=== PATIENT | male | born 1935 | race Caucasian/White ===

== ENCOUNTER 2019-06-24 11:26 | Inpatient (IN) | payer OTHER ==
[~2019-06-24] VITALS: Ht 172.7 cm; Wt 90.7 kg
[2019-06-24 11:30] VITALS: BP_SYST 157
[2019-06-24 14:54] LABS: BASOPHILS # (AUTO) 0.1 K/uL (0.0-0.2); BASOPHILS % (AUTO) 0.7 % (0.0-2.0); EOSINOPHILS # (AUTO) 0.7 K/uL (0.0-0.4); EOSINOPHILS % (AUTO) 5.2 % (0.0-4.0); HEMATOCRIT 40.2 % (36-54); HEMOGLOBIN 13.4 g/dL (14.0-18.0); LYMPHOCYTES # (AUTO) 2.1 K/uL (1.0-5.5); LYMPHOCYTES % (AUTO) 16.8 % (20.5-51.5); MEAN CORPUSCULAR HEMOGLOBIN 28 pg (27-31); MEAN CORPUSCULAR HGB CONC 33 % (32-36); MEAN CORPUSCULAR VOLUME 85 fL (79.0-98.0); MONOCYTES # (AUTO) 0.9 K/uL (0.0-1.0); MONOCYTES % (AUTO) 7.1 % (1.7-9.3); NEUTROPHILS # (AUTO) 8.9 K/uL (1.8-7.7); NEUTROPHILS % (AUTO) 70.2 % (40.0-70.0); PLATELET COUNT (AUTO) 268 K/uL (130-430); RED CELL DISTRIBUTION WIDTH 13.6 % (9.0-15.0); WHITE BLOOD COUNT (AUTO) 12.6 K/uL (4.8-10.8)
[2019-06-24 15:14] LABS: BILIRUBIN,URINE NEGATIVE (NEGATIVE); BLOOD, URINE NEGATIVE (NEGATIVE); CLARITY/URINE CLEAR (CLEAR); COLOR,URINE YELLOW (YELLOW); GLUCOSE,URINE NEGATIVE (NEGATIVE); KETONES,URINE NEGATIVE (NEGATIVE); LEUKOCYTE ESTERASE ,URINE NEGATIVE (NEGATIVE); NITRITE, URINE NEGATIVE (NEGATIVE); PROTEIN URINE 1+ (NEGATIVE); UROBILINOGEN,URINE 0.2 (0.2-1.0)
[2019-06-24 15:25] LABS: BACTERIA,URINE FEW /HPF (None Seen); FINE GRANULAR CASTS,URINE 0-10 /LPF (None Seen); MUCUS,URINE None Seen /LPF (None Seen); RBC,URINE 0-3 /HPF (0-3); WBC,URINE 0-3 /HPF (0-3)
[2019-06-24] MEDS ORDERED: PIPERACILLIN/TAZO 3.375 GM in NS 50 ML IV ONE (15:30)
[2019-06-24] MEDS ORDERED: PIPERACILLIN/TAZOBACTAM 3.375 GM/VIAL (ZOSYN) IV ONE (15:46)
[2019-06-24] MEDS ORDERED: IPRATROPIUM/ALBUTEROL SULFATE 3 ML AMPUL.NEB (DUONEB) INH ONE (17:15)
[2019-06-24] MEDS ORDERED: HYDROcodone/ACETAMIN 5-325 MG TAB (NORCO/ VICODIN) PO ONE (17:45)
[2019-06-24] MEDS ORDERED: FOLI-43 PO (18:05)
[2019-06-24] MEDS ORDERED: [UNRECOGNIZED DRUG - CODE] PO (18:05)
[2019-06-24] MEDS ORDERED: LIP40 PO (18:05)
[2019-06-24] MEDS ORDERED: ALLO100T91 PO (18:05)
[2019-06-24] MEDS ORDERED: GABA-531 PO (18:05)
[2019-06-24] MEDS ORDERED: APIX5TAB4 PO (18:05)
[2019-06-24] MEDS ORDERED: NOR10 PO (18:05)
[2019-06-24] MEDS ORDERED: INSU100I26 SQ (18:06)
[2019-06-24 18:55] VITALS: BP_SYST 157
[2019-06-24 19:00] VITALS: BP_SYST 144
[2019-06-24 20:00] VITALS: BP_SYST 144
[2019-06-24] MEDS: ATORVASTATIN 20 MG TABLET PO SCH (21:36)
[2019-06-24] MEDS: GABAPENTIN 300 MG CAPSULE PO SCH (21:36)
[2019-06-24] MEDS: NORMAL SALINE 5 ML DISP.SYRIN IVF SCH (21:37)
[2019-06-24] MEDS: cefTRIAXone 1 GM IVPB PREMIX 50 ML IV SCH (22:30)
[2019-06-24] MEDS: AZITHROMYCIN 500 MG in NS 250 ML IV SCH (22:31)
[2019-06-24] MEDS ORDERED: cefTRIAXone 1 GM IVPB PREMIX 50 ML IV ONE (22:35)
[2019-06-24] MEDS ORDERED: AZITHROMYCIN 500 MG/VIAL (ZITHROMAX) IV ONE (22:35)
[2019-06-25 00:09] VITALS: BP_SYST 148
[2019-06-25] MEDS: NORMAL SALINE 5 ML DISP.SYRIN IVF SCH ×3 (05:03→21:37)
[2019-06-25 08:01] VITALS: BP_SYST 148
[2019-06-25] MEDS: amLODIPine BESYLATE 10 MG TABLET PO SCH (08:08)
[2019-06-25] MEDS: FOLIC ACID 1 MG TABLET PO SCH (08:08)
[2019-06-25] MEDS: ALLOPURINOL 100 MG TABLET (ZYLOPRIM) PO SCH (08:08)
[2019-06-25] MEDS: GABAPENTIN 300 MG CAPSULE PO SCH ×3 (08:08→20:09)
[2019-06-25 09:32] LABS: BASOPHILS # (AUTO) 0.1 K/uL (0.0-0.2); BASOPHILS % (AUTO) 0.9 % (0.0-2.0); EOSINOPHILS # (AUTO) 0.8 K/uL (0.0-0.4); HEMATOCRIT 40.5 % (36-54); HEMOGLOBIN 13.4 g/dL (14.0-18.0); LYMPHOCYTES # (AUTO) 1.8 K/uL (1.0-5.5); LYMPHOCYTES % (AUTO) 14.1 % (20.5-51.5); MEAN CORPUSCULAR HEMOGLOBIN 28 pg (27-31); MEAN CORPUSCULAR HGB CONC 33 % (32-36); MEAN CORPUSCULAR VOLUME 85 fL (79.0-98.0); MONOCYTES # (AUTO) 0.7 K/uL (0.0-1.0); MONOCYTES % (AUTO) 5.8 % (1.7-9.3); NEUTROPHILS # (AUTO) 9.4 K/uL (1.8-7.7); NEUTROPHILS % (AUTO) 73.2 % (40.0-70.0); PLATELET COUNT (AUTO) 305 K/uL (130-430); RED BLOOD CELL COUNT(AUTO) 4.74 MIL/uL (4.2-6.2); RED CELL DISTRIBUTION WIDTH 13.6 % (9.0-15.0); WHITE BLOOD COUNT (AUTO) 12.8 K/uL (4.8-10.8)
[2019-06-25 09:51] LABS: ALANINE AMINOTRANSFERASE 9 U/L (12-78); ALBUMIN 3.2 g/dL (3.4-4.8); ANION GAP 9 (5-15); ASPARTATE AMINOTRANSFERASE 14 U/L (10-37); CALCIUM 9.4 mg/dL (8.4-11.0); CHLORIDE 104 mmol/L (98-107); CREATININE 1.51 mg/dL (0.55-1.30); GLUCOSE 157 mg/dL (70-99); POTASSIUM 4.3 mmol/L (3.5-5.1); SODIUM SERUM 142 mmol/L (136-145); TOTAL BILIRUBIN 1.1 mg/dL (0.0-1.0); UREA NITROGEN, BLOOD 26 mg/dL (8-21)
[2019-06-25 11:17] VITALS: BP_SYST 128
[2019-06-25 15:23] VITALS: BP_SYST 133
[2019-06-25] MEDS: cefTRIAXone 1 GM IVPB PREMIX 50 ML IV SCH (18:35)
[2019-06-25 20:00] VITALS: BP_SYST 168
[2019-06-25] MEDS: ATORVASTATIN 20 MG TABLET PO SCH (20:10)
[2019-06-25] MEDS: AZITHROMYCIN 500 MG in NS 250 ML IV SCH (20:11)
[2019-06-25] MEDS: HYDROcodone/ACETAMIN 10-325 MG TAB PO PRN (21:37)
[2019-06-26 00:45] VITALS: BP_SYST 114
[2019-06-26] MEDS: NORMAL SALINE 5 ML DISP.SYRIN IVF SCH ×3 (06:14→21:05)
[2019-06-26 08:05] VITALS: BP_SYST 135
[2019-06-26] MEDS: FOLIC ACID 1 MG TABLET PO SCH (08:24)
[2019-06-26] MEDS: amLODIPine BESYLATE 10 MG TABLET PO SCH (08:24)
[2019-06-26] MEDS: GABAPENTIN 300 MG CAPSULE PO SCH ×3 (08:24→20:55)
[2019-06-26] MEDS: MUPIROCIN 2% TOPICAL OINTMENT 22 GM NS SCH ×2 (08:24→20:57)
[2019-06-26] MEDS: ALLOPURINOL 100 MG TABLET (ZYLOPRIM) PO SCH (08:24)
[2019-06-26] MEDS: HYDROcodone/ACETAMIN 10-325 MG TAB PO PRN (08:27)
[2019-06-26 08:30] LABS: BASOPHILS # (AUTO) 0.1 K/uL (0.0-0.2); BASOPHILS % (AUTO) 1.1 % (0.0-2.0); EOSINOPHILS # (AUTO) 0.9 K/uL (0.0-0.4); EOSINOPHILS % (AUTO) 7.7 % (0.0-4.0); HEMATOCRIT 35.6 % (36-54); HEMOGLOBIN 11.8 g/dL (14.0-18.0); LYMPHOCYTES % (AUTO) 17.3 % (20.5-51.5); MEAN CORPUSCULAR HEMOGLOBIN 28 pg (27-31); MEAN CORPUSCULAR HGB CONC 33 % (32-36); MEAN CORPUSCULAR VOLUME 86 fL (79.0-98.0); MONOCYTES % (AUTO) 8.8 % (1.7-9.3); NEUTROPHILS # (AUTO) 7.4 K/uL (1.8-7.7); NEUTROPHILS % (AUTO) 65.1 % (40.0-70.0); PLATELET COUNT (AUTO) 281 K/uL (130-430); RED BLOOD CELL COUNT(AUTO) 4.16 MIL/uL (4.2-6.2); RED CELL DISTRIBUTION WIDTH 13.4 % (9.0-15.0); WHITE BLOOD COUNT (AUTO) 11.3 K/uL (4.8-10.8)
[2019-06-26 08:54] LABS: ANION GAP 8 (5-15); CALCIUM 8.9 mg/dL (8.4-11.0); CHLORIDE 104 mmol/L (98-107); CREATININE 1.58 mg/dL (0.55-1.30); GLUCOSE 160 mg/dL (70-99); POTASSIUM 4.3 mmol/L (3.5-5.1); SODIUM SERUM 140 mmol/L (136-145); UREA NITROGEN, BLOOD 26 mg/dL (8-21)
[2019-06-26] MEDS: INSULIN REGULAR, HUMAN 100 UNITS/ML, 10 ML VIAL (humuLIN R) SUBCUT PRN (11:47)
[2019-06-26 12:57] VITALS: BP_SYST 146
[2019-06-26 18:03] VITALS: BP_SYST 133
[2019-06-26] MEDS: cefTRIAXone 1 GM IVPB PREMIX 50 ML IV SCH (19:50)
[2019-06-26 20:00] VITALS: BP_SYST 149
[2019-06-26] MEDS: AZITHROMYCIN 500 MG in NS 250 ML IV SCH (20:55)
[2019-06-26] MEDS: ATORVASTATIN 20 MG TABLET PO SCH (20:55)
[2019-06-27] MEDS: INSULIN REGULAR, HUMAN 100 UNITS/ML, 10 ML VIAL (humuLIN R) SUBCUT PRN ×3 (00:16→17:29)
[2019-06-27 00:20] VITALS: BP_SYST 122
[2019-06-27] MEDS: NORMAL SALINE 5 ML DISP.SYRIN IVF SCH ×3 (05:52→21:28)
[2019-06-27 08:30] VITALS: BP_SYST 174
[2019-06-27] MEDS: GABAPENTIN 300 MG CAPSULE PO SCH ×3 (09:13→21:27)
[2019-06-27] MEDS: ALLOPURINOL 100 MG TABLET (ZYLOPRIM) PO SCH (09:13)
[2019-06-27] MEDS: amLODIPine BESYLATE 10 MG TABLET PO SCH (09:14)
[2019-06-27] MEDS: FOLIC ACID 1 MG TABLET PO SCH (09:14)
[2019-06-27] MEDS: HYDROcodone/ACETAMIN 10-325 MG TAB PO PRN ×2 (09:15→21:28)
[2019-06-27] MEDS: MUPIROCIN 2% TOPICAL OINTMENT 22 GM NS SCH ×2 (09:20→21:27)
[2019-06-27 12:10] VITALS: BP_SYST 144
[2019-06-27] MEDS: LEVOFLOXACIN 250 MG/D5W 50 ML IV SCH (15:02)
[2019-06-27 16:45] VITALS: BP_SYST 135
[2019-06-27] MEDS: CLINDAMYCIN 600 MG in D5W 50 ML IV SCH ×2 (17:40→23:21)
[2019-06-27] MEDS ORDERED: HYDROcodone/ACETAMIN 5-325 MG TAB (NORCO/ VICODIN) PO PRN (18:45)
[2019-06-27 20:00] VITALS: BP_SYST 128
[2019-06-27] MEDS: ATORVASTATIN 20 MG TABLET PO SCH (21:27)
[2019-06-28 01:30] VITALS: BP_SYST 152
[2019-06-28] MEDS: CLINDAMYCIN 600 MG in D5W 50 ML IV SCH ×3 (06:13→17:38)
[2019-06-28] MEDS: NORMAL SALINE 5 ML DISP.SYRIN IVF SCH ×2 (06:24→14:40)
[2019-06-28 08:18] VITALS: BP_SYST 144
[2019-06-28] MEDS: MUPIROCIN 2% TOPICAL OINTMENT 22 GM NS SCH (08:43)
[2019-06-28] MEDS: GABAPENTIN 300 MG CAPSULE PO SCH ×2 (08:43→14:40)
[2019-06-28] MEDS: ALLOPURINOL 100 MG TABLET (ZYLOPRIM) PO SCH (08:44)
[2019-06-28] MEDS: FOLIC ACID 1 MG TABLET PO SCH (08:45)
[2019-06-28] MEDS: amLODIPine BESYLATE 10 MG TABLET PO SCH (08:45)
[2019-06-28] MEDS: HYDROcodone/ACETAMIN 10-325 MG TAB PO PRN (08:46)
[2019-06-28] MEDS: LEVOFLOXACIN 250 MG/D5W 50 ML IV SCH (08:46)
[2019-06-28] MEDS: INSULIN REGULAR, HUMAN 100 UNITS/ML, 10 ML VIAL (humuLIN R) SUBCUT PRN ×2 (11:56→17:22)
[2019-06-28 12:32] VITALS: BP_SYST 131
[2019-06-28 16:06] VITALS: BP_SYST 137
[2019-06-28 18:02] VITALS: BP_SYST 137
[2019-06-28 21:30] VITALS: BP_SYST 140
== END 2019-06-28 21:45 | DRG 871 ==
LOC: SED 11:26 → SMU 18:05
PROVIDERS: ADMIT Internal Medicine; ATTEND Internal Medicine
DX: A41.9 Sepsis, unspecified organism (principal); J69.0 Pneumonitis due to inhalation of food and vomit; E11.9 Type 2 diabetes mellitus without complications; I11.0 Hypertensive heart disease with heart failure; I50.9 Heart failure, unspecified; M10.9 Gout, unspecified; Z89.511 Acquired absence of right leg below knee; Z79.899 Other long term (current) drug therapy; Z88.5 Allergy status to narcotic agent
CPT/HCPCS: 36415; 71045; 80048; 80053; 81000-TC; 82962; 83605; 83880; 84484; 85025; 87040-TC; 87081; 87086; 93005; 94640; 96365; 99285; J0456; J0696; J1815; J1956; J2543; J3490; J7050; J7060; J7620